=== PATIENT | female | born 1990 | race Caucasian/White ===

== ENCOUNTER 2023-12-06 14:59 | Emergency (ER) | payer SELFPAY ==
[~2023-12-06] VITALS: Ht 154.9 cm; Wt 91.3 kg
[2023-12-06 15:03] VITALS: BP 127/84; PULSE 75; RESP 18; TEMP 97.9; O2SAT 100
[2023-12-06] MEDS ORDERED: DICL100G32 TP (16:14)
[2023-12-06] MEDS ORDERED: NAPR-1704 PO (16:14)
[2023-12-06 16:39] VITALS: BP 120/80; PULSE 70; RESP 18; TEMP 36.61404; O2SAT 100
== END 2023-12-06 16:39 | disposition home or self-care (01) ==
LOC: MED 14:59
DX: S63.502A Unspecified sprain of left wrist, initial encounter (principal); Z79.899 Other long term (current) drug therapy; X58.XXXA Exposure to other specified factors, initial encounter; Y93.89 Activity, other specified; Y92.89 Other specified places as the place of occurrence of the external cause; Y99.8 Other external cause status
CPT/HCPCS: 73090; 73110; 99284